=== PATIENT | male | born 1995 | race Two or more races ===

== ENCOUNTER 2025-05-23 15:08 | Outpatient (REF) | payer OTHER, SELFPAY ==
--- NOTE | 2025-05-23 15:13 | EMG_ITS ---
Chief complaint: Bilateral hand numbness Reason for referral: Evaluate for Carpal Tunnel Syndrome, ulnar neuropathy or cervical radiculopathy Referred by: Denice SPRINGER Procedure done: Bilateral upper extremities NCS/EMG Precautions and/or limitations: None The limb temperature was monitored continuously and remained between 32-36 degrees C during the performance of the NCS. Nerve Conduction Studies Anti Sensory Summary Table ?Stim Site NR Onset (ms) Norm Onset (ms) Peak (ms) Norm Peak (ms) O-P Amp (?V) Norm O-P Amp Site1 Site2 Delta-0 (ms) Dist (cm) Chicho (m/s) Norm Chicho (m/s) Left Median Anti Sensory (2nd Digit) Wrist NR <3.6 >10 Wrist 2nd Digit 14.0 Right Median Anti Sensory (2nd Digit) Wrist NR <3.6 >10 Wrist 2nd Digit 14.0 Right Radial Anti Sensory (Thumb) Forearm ? 1.7 2.3 <3.1 24.9 Forearm Thumb 1.7 0.0 Left Ulnar Anti Sensory (5th Digit) Wrist ? 2.2 2.8 <3.7 39.4 >15.0 Wrist 5th Digit 2.2 14.0 64 Right Ulnar Anti Sensory (5th Digit) Wrist ? 2.0 2.9 <3.7 13.1 >15.0 Wrist 5th Digit 2.0 14.0 70 Motor Summary Table ?Stim Site NR Onset (ms) Norm Onset (ms) O-P Amp (mV) Norm O-P Amp iAmp (mV) Amp (1st) (%) Site1 Site2 Delta-0 (ms) Dist (cm) Chicho (m/s) Norm Chicho (m/s) Left Median Motor (Abd Poll Brev) Wrist ? 5.2 <3.9 13.1 >4.5 16.1 100.0 Elbow Wrist 4.5 23.5 52 >45 Elbow ? 9.7 12.2 15.1 93.1 Right Median Motor (Abd Poll Brev) Wrist ? 8.5 <3.9 12.0 >4.5 14.3 100.0 Elbow Wrist 4.7 23.0 49 >45 Elbow ? 13.2 9.0 11.1 75.0 Left Ulnar Motor (Abd Dig Minimi) Wrist ? 2.8 <3.0 8.6 >5 10.0 100.0 B Elbow Wrist 4.2 21.0 50 >45 B Elbow ? 7.0 7.0 8.6 81.4 A Elbow B Elbow 1.7 10.0 59 >45 A Elbow ? 8.7 6.9 8.6 80.2 Right Ulnar Motor (Abd Dig Minimi) Wrist ? 2.8 <3.0 8.7 >5 10.7 100.0 B Elbow Wrist 4.3 24.0 56 >45 B Elbow ? 7.1 7.9 9.5 90.8 A Elbow B Elbow 1.6 10.0 63 >45 A Elbow ? 8.7 7.1 8.7 81.6 EMG ?Side Muscle Nerve Root Ins Act Fibs Psw Amp Dur Poly Recrt Int Pat Comment Right 1stDorInt Ulnar C8-T1 Nml Nml Nml Nml Nml 0 Nml Complete Right FlexCarRad Median C6-7 Nml Nml Nml Nml Nml 0 Nml Complete Right Biceps Musculocut C5-6 Nml Nml Nml Nml Nml 0 Nml Complete Right Triceps Radial C6-7-8 Nml Nml Nml Nml Nml 0 Nml Complete Right Deltoid Axillary C5-6 Nml Nml Nml Nml Nml 0 Nml Complete Left 1stDorInt Ulnar C8-T1 Nml Nml Nml Nml Nml 0 Nml Complete Left FlexCarRad Median C6-7 Nml Nml Nml Nml Nml 0 Nml Complete Left Biceps Musculocut C5-6 Nml Nml Nml Nml Nml 0 Nml Complete Left Triceps Radial C6-7-8 Nml Nml Nml Nml Nml 0 Nml Complete Left Deltoid Axillary C5-6 Nml Nml Nml Nml Nml 0 Nml Complete FINDINGS: Bilateral median motor nerves showed prolonged distal latency, normal amplitude and normal conduction velocity. Right median sensory nerves showed absent response. All other nerves tested were within normal. Concentric needle EMG was performed in selected muscles of the bilateral upper extremities. Study did not reveal signs of electric abnormalities as shown in the table above. IMPRESSION: 1. This is an abnormal study. 2. There is electrodiagnostic evidence for bilateral moderate-severe median neuropathy at the wrist, consistent with carpal tunnel syndrome. 3. There is no electrodiagnostic evidence for ulnar neuropathy, brachial plexopathy, or cervical radiculopathy. Thank you for your kind referral. Selena Subramanian MD, SIMON Board Certified, [place] [employer] (ABPMR) Board Certified, [place] [employer] Electro[employer] (ABEM) CODIN [phone] x 2 extremities MTDD
== END 2025-05-23 15:09 | disposition home or self-care (01) ==
LOC: HO.NEURO 15:08
PROVIDERS: Visit Provider Physician Assistant
DX: G56.03 Carpal tunnel syndrome, bilateral upper limbs (principal); G56.23 Lesion of ulnar nerve, bilateral upper limbs
CPT/HCPCS: 95886; 95911

== ENCOUNTER → 2025-05-23 15:13 | Outpatient (BNV) | payer OTHER, SELFPAY | PROVIDERS: Visit Provider Physical Medicine & Rehabilitation | DX: G56.03 Carpal tunnel syndrome, bilateral upper limbs (principal) | CPT/HCPCS: 95886; 95911 ==